=== PATIENT | male | born 1990 | race American Indian/Alaskan Native ===

== ENCOUNTER 2016-12-04 10:46 | Emergency (ER) | payer MEDICAID ==
--- NOTE | 2016-12-04 12:06 | Emergency Department Report ---
Stated Complaint: NOT SLEEPING/AGGRESSIVE BEHAVIOR Time Seen by Provider: 12/04/16 12:06 - HPI History of Present Illness: Patient brought to the hospital by a creative consultant stated that the patient has been sleeping pain and has became aggressive. She stated that the patient will need anything that she's. She is brought, and other objects. Patient said the patient has a colostomy bag from eating objects. Patient is not communicating. Blood patient to the emergency room because she said patient was discharged from another facility and they did not discharge him with any medication. She said she is here to get patient evaluated. - ROS Review of Systems: All systems are negative unless stated in HPI above - Exam Vital Signs: Vital Signs 12/04/16 12:06 Pulse Rate 53 L Respiratory 20 Rate Blood Pressure 142/85 O2 Sat by Pulse 100 Oximetry Physical Exam: General: This is a 26-year-old male well-nourished well-developed does not seem to be in any acute distress. Psych: Calm and relax. Patient is nonverbal. MSE screening note: Focused history and physical exam performed. Due to findings the following was ordered:see [facility] ED Medical Decision Making - Lab Data Result diagrams: 12/04/16 13:08 12/04/16 13:08 - Medical Decision Making Medical decision making: Patient seen by provider in triage area. Appropriate protocol activated and patient to main ED to be seen by physician. ED Disposition for MSE Condition: Stable
[2016-12-04 13:33] LABS: Anion Gap 18 mmol/L; BUN/Creatinine Ratio 12.85; Blood Urea Nitrogen 9 mg/dL (9-20); Carbon Dioxide 26 mmol/L (22-30); Chloride 99.5 mmol/L (98-107); Glucose 77 mg/dL (75-100); Potassium 4.1 mmol/L (3.6-5.0); Sodium 139 mmol/L (137-145)
[2016-12-04 13:34] LABS: Basophils % (Auto) 0.6 % (0.0-1.8); Eosinophils % (Auto) 1.2 % (0.0-4.3); Hematocrit 38.2 % (35.5-45.6); Hemoglobin 12.4 gm/dl (11.8-15.2); Mean Corpuscular HGB Conc 32 % (32-34); Mean Corpuscular Hemoglobin 27 pg (28-32); Mean Corpuscular Volume 83 fl (84-94); Platelet Count 304 K/mm3 (140-440); Red Blood Count 4.59 M/mm3 (3.65-5.03); Red Cell Distribution Width 14.3 % (13.2-15.2); White Blood Count 7.8 K/mm3 (4.5-11.0)
[2016-12-04 21:32] VITALS: BP 147/79
[2016-12-04] MEDS ORDERED: HALDOL IM ONE (22:00)
[2016-12-04] MEDS ORDERED: BENADRYL IM ONE (22:00)
--- NOTE | 2016-12-04 22:05 | Emergency Department Report ---
ED Psych HPI - General Chief Complaint: Psych Stated Complaint: NOT SLEEPING/AGGRESSIVE BEHAVIOR Time Seen by Provider: 12/04/16 12:06 Source: family, old records reviewed Mode of arrival: Ambulatory Limitations: Other - History of Present Illness Initial Comments: 26-year-old male presents to the emergency Department with caregivers for mental health evaluation. Per report, the patient was recently admitted to his current facility from [place]. Patient has a history of autism and mental retardation. Caregivers state that the patient on admission was called and cooperative. He had been receiving medication while in the hospital at [place]. Patient was not sent to their facility on any medication. Over the past several days, the patient has been sleeping less and becoming aggressive with his behavior. There are no other complaints. -: Gradual, days(s) (5) Associated Psychiatric Symptoms: none History of same: Yes Quality: constant Improves With: none Worsens With: none Context: not taking psychiatric Associated Symptoms: denies other symptoms Treatments Prior to Arrival: none - Related Data Previous Rx's Medication Instructions Recorded Last Taken Type Haloperidol [Haldol] 5 mg PO Q6H PRN #60 tab 12/04/16 Unknown Rx diphenhydrAMINE [Benadryl CAP] 25 mg PO Q6HR PRN #60 capsule 12/04/16 Unknown Rx ED Review of Systems ROS: Stated complaint: NOT SLEEPING/AGGRESSIVE BEHAVIOR Other details as noted in HPI Comment: All other systems reviewed and negative Psychiatric: as per HPI. denies: homicidal thoughts, suicidal thoughts ED Past Medical Hx - Past Medical History Previous Medical History?: Yes Additional medical history: Autism, mental retardation - Surgical History Past Surgical History?: Yes Additional Surgical History: Colostomy placement secondary to bowel obstruction - Social History Smoking Status: Unknown if ever smoked - Medications Home Medications: Home Medications Medication Instructions Recorded Confirmed Last Taken Type Haloperidol [Haldol] 5 mg PO Q6H PRN #60 tab 12/04/16 Unknown Rx diphenhydrAMINE [Benadryl CAP] 25 mg PO Q6HR PRN #60 capsule 12/04/16 Unknown Rx ED Physical Exam - General Limitations: Physical Limitation General appearance: alert, in no apparent distress - Head Head exam: Present: atraumatic, normocephalic - Eye Eye exam: Present: normal appearance, PERRL, EOMI - ENT ENT exam: Present: normal exam, normal orophraynx, mucous membranes moist - Neck Neck exam: Present: normal inspection, full ROM. Absent: tenderness - Respiratory Respiratory exam: Present: normal lung sounds bilaterally. Absent: respiratory distress - Cardiovascular Cardiovascular Exam: Present: regular rate, normal rhythm, normal heart sounds - GI/Abdominal GI/Abdominal exam: Present: soft, normal bowel sounds, other (ostomy site noted to left lower quadrant). Absent: distended, tenderness - Extremities Exam Extremities exam: Present: normal inspection, full ROM. Absent: tenderness - Back Exam Back exam: Present: normal inspection, full ROM. Absent: tenderness - Neurological Exam Neurological exam: Present: alert. Absent: motor sensory deficit - Psychiatric Psychiatric exam: Present: flat affect, other (patient is nonverbal and has difficulty following commands) - Skin Skin exam: Present: warm, dry, intact ED Course Vital Signs 12/04/16 12/04/16 12:06 21:31 Temperature 99.1 F Pulse Rate 53 L 70 Respiratory 20 20 Rate Blood Pressure 142/85 Blood Pressure 147/79 [Right] O2 Sat by Pulse 100 Oximetry - Reevaluation(s) Reevaluation #1: 12/04/16 22:07 Review of the patient's records from [place] provided by the current facility shows that the patient was receiving haloperidol and diphenhydramine. Giving IM doses of both. Patient will be observed in the emergency department. Reevaluation #2: 12/04/16 23:07 Following administration of medication, the patient has been resting quietly in the emergency department. Prescriptions for haloperidol and diphenhydramine been provided to the caregivers. Patient will be discharged with them at this time. ED Medical Decision Making - Lab Data Result diagrams: 12/04/16 13:08 12/04/16 13:08 - Differential Diagnosis autism, medication noncompliance Critical care attestation.: If time is entered above; I have spent that time in minutes in the direct care of this critically ill patient, excluding procedure time. ED Disposition Clinical Impression: Autism Disposition: DISCHARGED TO HOME OR SELFCARE Is pt being admited?: No Condition: Stable Instructions: Autism (ED) Prescriptions: diphenhydrAMINE [Benadryl CAP] 25 mg PO Q6HR PRN #60 capsule PRN Reason: Extrapyramidal Effects Haloperidol [Haldol] 5 mg PO Q6H PRN #60 tab PRN Reason: Agitation Referrals: PRIMARY CARE, [Primary Care Provider] - 3-5 Days Time of Disposition: 23:08
[2016-12-05] MEDS ORDERED: BENADRYL IM ONE ×2 (00:07→01:41)
[2016-12-05] MEDS ORDERED: HALDOL IM ONE ×2 (00:07→01:41)
== END 2016-12-05 00:56 | disposition home or self-care (01) ==
LOC: ED 10:46
DX: F84.0 Autistic disorder (principal); F79 Unspecified intellectual disabilities
CPT/HCPCS: 36415; 80048; 85025; 96372; 99283; G0480; J1200; J1630; 80320

== ENCOUNTER 2017-02-09 11:31 | Inpatient (IN) | payer MEDICAID ==
--- NOTE | 2017-02-09 12:03 | Emergency Department Report ---
Chief Complaint: Medical Clearance Stated Complaint: INFECTION Time Seen by Provider: 02/09/17 12:01 - HPI History of Present Illness: PT lives in personal usp. PT brought in for possible infection. staff noticed swelling at site of colostomy. PT has a hx of Pica. unsure if pt ingested somthing. pt still eating and having normal (for him) stool - ROS Review of Systems: - fever + abd distension - Exam Vital Signs: Vital Signs 02/09/17 11:53 Temperature 98.4 F Pulse Rate 100 H Respiratory 16 Rate Blood Pressure 129/95 O2 Sat by Pulse 99 Oximetry Physical Exam: PT is alert abd distended but soft. colostomy pouch to llq MSE screening note: Focused history and physical exam performed. Due to findings the following was ordered:xr ED Disposition for MSE Condition: Stable
--- NOTE | 2017-02-09 18:26 | Cat Scan Report ---
FINAL REPORT EXAM: CT ABDOMEN PELVIS WO CON HISTORY: abd distension, ingested fb TECHNIQUE: CT of the abdomen and pelvis without contrast PRIORS: None. FINDINGS: No acute abnormality identified in the lung bases Nonenhanced images of the liver spleen spleen are unremarkable. No peripancreatic inflammatory changes are seen the kidneys demonstrate no evidence for nephrolithiasis or hydronephrosis There is marked diffuse colonic distention large amount stool present within the colon. There is left lower quadrant colostomy Multiple radiopaque foreign bodies are present within the colon. Within the right colon there are multiple small densities present which could reflect ingested small foreign bodies. At the cecum there is a rectangular focus radiodense foreign body measuring 2.2 x 1.2 centimeters. More superiorly within right colon there is an additional metallic density foreign body measuring 1.1 x 0.4 centimeters. Within the left colon multiple foreign bodies are identified. There is some nonmetallic appearing mesh like material mixed with stool seen adjacent to the colostomy. Proximal to this there is a metallic density object 1.2 centimeters in length with some metallic appearing coils extending more proximally along with adjacent somewhat ill-defined material. There is marked colonic wall thickening at the portion of the colon just proximal to the ostomy site most consistent with colitis No free air is identified There is no significant small bowel distention. IMPRESSION: Multiple ingested foreign bodies present within the colon with marked colonic distention. Findings likely reflect obstruction or partial obstruction at the ostomy site. Marked colonic wall thickening just proximal to diverting colostomy concerning for colitis.
[2017-02-09 19:47] LABS: Basophils % (Auto) 0.4 % (0.0-1.8); Eosinophils % (Auto) 2.6 % (0.0-4.3); Hematocrit 41.3 % (35.5-45.6); Hemoglobin 13.7 gm/dl (11.8-15.2); Mean Corpuscular HGB Conc 33 % (32-34); Mean Corpuscular Hemoglobin 28 pg (28-32); Mean Corpuscular Volume 84 fl (84-94); Platelet Count 409 K/mm3 (140-440); Red Cell Distribution Width 15.6 % (13.2-15.2)
[2017-02-09 20:06] LABS: Alanine Aminotransferase 8 units/L (7-56); Albumin 3.7 g/dL (3.9-5); Albumin/Globulin Ratio 0.9 %; Alkaline Phosphatase 113 units/L (35-129); Anion Gap 18 mmol/L; BUN/Creatinine Ratio 13.33; Bilirubin,Total 0.2 mg/dL (0.1-1.2); Blood Urea Nitrogen 8 mg/dL (9-20); Calcium 8.8 mg/dL (8.4-10.2); Carbon Dioxide 27 mmol/L (22-30); Chloride 97.4 mmol/L (98-107); Glucose 119 mg/dL (75-100); Potassium 3.9 mmol/L (3.6-5.0); Sodium 138 mmol/L (137-145); Total Protein 7.6 g/dL (6.3-8.2)
--- NOTE | 2017-02-09 23:30 | Emergency Department Report ---
HPI - General Chief Complaint: Medical Clearance Time Seen by Provider: 02/09/17 23:07 - HPI HPI: Room 9 The patient is a 26-year-old male presenting with a chief complaint of colostomy dysfunction. Patient reportedly had a colostomy placed at [facility] 12/24/2016 secondary to what the sheet metal duct installer apprentice states was just informed bodies. This morning has a sheet metal duct installer apprentice was changing the colostomy bag they were concerned about a change in color of colostomy and was concerned that it may be infected. One caretakers stated that thought they saw a foreign object "piece of plastic" inside the stoma. Given the fact that the patient has a known history of ingesting foreign bodies the patient brought to the hospital for evaluation. The sheet metal duct installer apprentice states there has been no change in output of the colostomy. 3 days ago the sheet metal duct installer apprentice noted there was an episode of nausea and vomiting. There is no history of fever. Location: Abdomen Duration: [see above] Quality: [see above] Severity: [see above] Modifying factors: [see above] Context: [see above] Mode of transportation: [not driving] ED Past Medical Hx - Past Medical History Previous Medical History?: Yes Additional medical history: Autism, mental retardation, Pica - Surgical History Past Surgical History?: Yes Additional Surgical History: Colostomy placement secondary to bowel obstruction (December 2016-[facility]) - Social History Smoking Status: Never Smoker Substance Use Type: None - Medications Home Medications: Home Medications Medication Instructions Recorded Confirmed Last Taken Type Haloperidol [Haldol] 5 mg PO Q6H PRN #60 tab 12/04/16 Unknown Rx diphenhydrAMINE [Benadryl CAP] 25 mg PO Q6HR PRN #60 capsule 12/04/16 Unknown Rx ED Review of Systems ROS: Stated complaint: INFECTION Other details as noted in HPI Comment: Unobtainable due to pts medical conditions Gastrointestinal: vomiting Physical Exam - Physical Exam Vital Signs: Vital Signs 02/09/17 11:53 Temperature 98.4 F Pulse Rate 100 H Respiratory 16 Rate Blood Pressure 129/95 O2 Sat by Pulse 99 Oximetry Physical Exam: GENERAL: The patient is a large male lying in right lateral decubitus position sleeping not appearing to be in acute distress HEENT: Normocephalic. Atraumatic. Extraocular motions are intact. Patient has moist mucous membranes. NECK: Supple. No meningitic signs are noted. There is no adenopathy noted. CHEST/LUNGS: Clear to auscultation. There is no respiratory distress noted. HEART/CARDIOVASCULAR: Regular. There is tachycardia. There is no gallop rub or murmur. ABDOMEN: Abdomen is soft, nontender. Patient has normal bowel sounds. There is no abdominal distention. SKIN: There is no rash. There is no edema. There is no diaphoresis. NEURO: The patient There is no evidence of acute injury. ED Course Vital Signs 02/09/17 11:53 Temperature 98.4 F Pulse Rate 100 H Respiratory 16 Rate Blood Pressure 129/95 O2 Sat by Pulse 99 Oximetry - Consultations Consultation #1: 02/09/17 23:26 Gastroenterology paged 02/09/17 23:[address] Fam- recommends keeping the patient npo and he will evaluate in the morning ED Medical Decision Making - Lab Data Result diagrams: 02/09/17 19:25 02/09/17 19:25 Laboratory Tests 02/09/17 02/09/17 19:25 19:25 WBC 10.0 RBC 4.90 Hgb 13.7 Hct 41.3 MCV 84 MCH 28 MCHC 33 RDW 15.6 H Plt Count 409 Lymph % (Auto) 20.7 [place] % (Auto) 8.3 H Eos % (Auto) 2.6 Baso % (Auto) 0.4 Lymph # 2.1 [place] # 0.8 Eos # 0.3 Baso # 0.0 Seg Neutrophils % 68.0 Seg Neutrophils # 6.8 Sodium 138 Potassium 3.9 Chloride 97.4 L Carbon Dioxide 27 Anion Gap 18 BUN 8 L Creatinine 0.6 L Estimated GFR > 60 BUN/Creatinine Ratio 13.33 Glucose 119 H Calcium 8.8 Total Bilirubin 0.2 AST 14 ALT 8 Alkaline Phosphatase 113 Total Protein 7.6 Albumin 3.7 L Albumin/Globulin Ratio 0.9 - Radiology Data Radiology results: report reviewed (CT abdomen and pelvis), image reviewed ( abdominal x-ray, CT abdomen and pelvis) interpreted by me: Abdominal x-ray-there is an apparent screw in the right lower quadrant and a zipper in the left lower quadrant ED abdomen pelvis (read by radiologist) sees-multiple ingestive foreign bodies present within the colon with moderate colonic distention. Findings likely reflect obstruction or partial obstruction at the ostomy site. Market colonic wall thickening just proximal to the Fito colostomy concerning for colitis. - Differential Diagnosis colonic obstruction, foreign body ingestion Critical care attestation.: If time is entered above; I have spent that time in minutes in the direct care of this critically ill patient, excluding procedure time. ED Disposition Clinical Impression: Foreign body ingestion, Bowel obstruction Disposition: OP ADMITTED IP TO THIS HOSP Is pt being admited?: Yes Does the pt Need Aspirin: No Condition: Fair Referrals: DENNIS CHEATHAM MD [Primary Care Provider] - 3-5 Days Time of Disposition: 23:37 (hospitalist paged)
[2017-02-09] MEDS ORDERED: NACL 0.9% 1000 ML 1,000 ML IV ONE ×2 (23:38)
[2017-02-09] MEDS ORDERED: NACL 0.45% 1000 ML 1,000 ML IV SCH (23:45)
[2017-02-09] MEDS ORDERED: TYLENOL PO PRN (23:58)
[2017-02-09] MEDS ORDERED: ZOFRAN IV PRN (23:58)
--- NOTE | 2017-02-10 | History and Physical Report ---
History of Present Illness Date of examination: 02/09/17 History of present illness: 26-year-old man with a history of mental retardation, autism, all obstructions was brought to the emergency room because healthcare caregiver was concerned about his colostomy being infected versus the patient ingested a foreign body. Patient has a history of ingestion of foreign body. His workup here in the emergency room shows that there is a foreign body causing a partial bowel obstruction. History is per the caregiver at bedside, review of system is unobtainable PAST SURGICAL HISTORY: Colostomy SOCIAL HISTORY: No alcohol, tobacco, drugs, lives at a personal fpc FAMILY HISTORY: Unknown Medications and Allergies Allergies Allergy/AdvReac Type Severity Reaction Status Date / Time apple Allergy Rash Verified 02/12/17 17:13 chocolate flavor Allergy Rash Verified 02/12/17 17:13 Home Medications Medication Instructions Recorded Confirmed Last Taken Type Benztropine [Cogentin] 1 mg PO BID 02/10/17 02/10/17 Unknown History Haloperidol [Haldol] 2 mg PO BID PRN 02/10/17 02/10/17 Unknown History Olanzapine [ZyPREXA] 20 mg PO QDAY 02/10/17 02/10/17 Unknown History Propranolol HCl 20 mg PO QID 02/10/17 02/10/17 Unknown History diphenhydrAMINE [Benadryl CAP] 25 mg PO QDAY 02/10/17 02/10/17 Unknown History Active Meds: Active Medications Sodium Chloride (Nacl 0.9% 1000 Ml) 1,000 mls @ 999 mls/hr IV ONCE ONE Stop: 02/10/17 00:38 Sodium Chloride (Nacl 0.9% 1000 Ml) 1,000 mls @ 125 mls/hr IV ONCE ONE Stop: 02/10/17 07:37 Exam - Physical Exam Narrative exam: Gen. appearance: Patient lying in bed, no apparent distress HEENT: Normocephalic, atraumatic, pupils equally round and reactive to light, extraocular movement intact, and no sclericterus,. No JVD or thyromegaly or nodule,neck supple, no carotid bruit ,mucous membranes moist, no exudate or erythema Heart: S1, S2, regular rate and rhythm Lungs: Clear to auscultation bilaterally, breathing comfortable Abdomen: Positive bowel sounds, nontender, nondistended, no organomegaly Extremity: No edema, cyanosis, clubbing Skin: No rash, nodules, warm, dry Neuro: Difficult to assess, non-verbal - Constitutional Vitals: Temp Pulse Resp BP Pulse Ox 98.4 F 100 H 16 129/95 99 02/09/17 11:53 02/09/17 11:53 02/09/17 11:53 02/09/17 11:53 02/09/17 11:53 Results - Labs CBC & Chem 7: 02/12/17 06:37 02/12/17 06:37 Labs: Abnormal lab results 02/09/17 02/09/17 Range/Units 19:25 19:25 RDW 15.6 H (13.2-15.2) % [place] % (Auto) 8.3 H (0.0-7.3) % Chloride 97.4 L (98-107) mmol/L BUN 8 L (9-20) mg/dL Creatinine 0.6 L (0.8-1.5) mg/dL Glucose 119 H (75-100) mg/dL Albumin 3.7 L (3.9-5) g/dL Assessment and Plan Foreign-body ingestion with possible bowel obstruction Possible Colitiis Mental retardation/autism Admits medicine Start IV fluids, Levaquin, Flagyl GI is consulted, Dr. Fam is aware of the patient Start DVT prophylaxis
[2017-02-10] MEDS: LEVAQUIN 750MG/150ML 750 MG/150 ML BAG IV SCH ×2 (02:18→16:10)
[2017-02-10] MEDS: FLAGYL 500 MG/100 ML 500 MG/100 ML BAG IV SCH ×2 (04:00→16:01)
[2017-02-10 06:33] LABS: Anion Gap 17 mmol/L; Blood Urea Nitrogen 7 mg/dL (9-20); Calcium 8.4 mg/dL (8.4-10.2); Carbon Dioxide 22 mmol/L (22-30); Chloride 104.2 mmol/L (98-107); Glucose 111 mg/dL (75-100); Potassium 4.4 mmol/L (3.6-5.0); Sodium 139 mmol/L (137-145)
[2017-02-10 06:37] LABS: Basophils % (Auto) 0.4 % (0.0-1.8); Eosinophils % (Auto) 1.3 % (0.0-4.3); Hematocrit 39.2 % (35.5-45.6); Mean Corpuscular HGB Conc 33 % (32-34); Mean Corpuscular Hemoglobin 28 pg (28-32); Mean Corpuscular Volume 84 fl (84-94); Platelet Count 383 K/mm3 (140-440); Red Blood Count 4.68 M/mm3 (3.65-5.03); Red Cell Distribution Width 15.4 % (13.2-15.2); White Blood Count 10.9 K/mm3 (4.5-11.0)
--- NOTE | 2017-02-10 06:37 | Admit Criteria Form ---
Admission Criteria Documentation: INTESTINAL OBSTRUCTION Clinical Indications for Admission to Inpatient Care (Place 'X' for any and all applicable criteria): Admission is indicated for ANY ONE of the following (1)(2)(3)(4)(5): [X]I. Partial bowel obstruction [ ]II. Complete bowel obstruction Extended stay beyond goal length of stay may be needed for(1)(4)(12(: [ ]a) Identified etiology (eg, hernia, volvulus, cancer with obstruction) requiring intervention [ ]b) Gallstone ileus [ ]c) Surgical intervention [ ]d) Acute comorbid illness (eg, electrolyte imbalance, hypovolemia, renal failure) The original [employer] content created by [employer] has been revised. The portions of the content which have been revised are identified through the use of italic text or in bold, and [facility] has neither reviewed nor approved the modified material. All other unmodified content is copyright [employer]. Please see references footnoted in the original [employer] edition 2016 Admission Criteria Met: Yes
--- NOTE | 2017-02-10 09:29 | XRay Report ---
KUB. Findings: Multiple foreign bodies are projected over the abdomen these are identified within the bowel on an abdominal CT performed on the same date. Moderate stool is seen throughout colon.
[2017-02-10] MEDS ORDERED: CITRATE OF MAGNESIA PO ONE (10:32)
--- NOTE | 2017-02-10 12:22 | Event Note ---
Date: 02/10/17 Patient seen and evaluated medical records reviewed Admitted this morning with history of foreign body ingestion Medical records reviewed, caregiver at the bedside GI following,Agreed with the current management, plan of care discussed the patient's case mold forms builder as well as the nurse
--- NOTE | 2017-02-10 12:23 | Progress Note ---
Assessment and Plan Assessment and plan: --Foreign body abdomen Status post endoscopy unable to retrieve Supportive care, surgical evaluation Discussed the case with Dr. Sotomayor and requested a consult GI following --History of colostomy Ostomy care --Autism/mental retardation Supportive care --DVT prophylaxis SCDs History Interval history: Patient seen and evaluated medical records reviewed Admitted with foreign-body ingestion, status post endoscopy unable to retrieve foreign body by GI Surgical consult requested I discussed the case with Patient is noncommunicative not in acute distress Hospitalist Physical - Constitutional Vitals: Temp Pulse Resp BP Pulse Ox 98.3 F 116 H 16 126/78 100 02/10/17 07:32 02/10/17 07:32 02/10/17 07:32 02/10/17 07:32 02/10/17 07:32 General appearance: Present: no acute distress, well-nourished - EENT Eyes: Present: PERRL, EOM intact - Neck Neck: Present: supple, normal ROM - Respiratory Respiratory effort: normal Respiratory: negative: rales, rhonchi, wheezing - Cardiovascular Rhythm: regular Heart Sounds: Present: S1 & S2 - Extremities Extremities: no ischemia, pulses intact, pulses symmetrical - Abdominal General gastrointestinal: soft, normal bowel sounds - Integumentary Integumentary: Present: clear, warm - Psychiatric Psychiatric: other (noncommunicative mental retardation) - Neurologic Neurologic: other (noncommunicative mental retardation) Results - Labs CBC & Chem 7: 02/11/17 07:12 02/11/17 07:12 Labs: Laboratory Last Values WBC 10.9 K/mm3 (4.5-11.0) 02/10/17 04:00 RBC 4.68 M/mm3 (3.65-5.03) 02/10/17 04:00 Hgb 13.0 gm/dl (11.8-15.2) 02/10/17 04:00 Hct 39.2 % (35.5-45.6) 02/10/17 04:00 MCV 84 fl (84-94) 02/10/17 04:00 MCH 28 pg (28-32) 02/10/17 04:00 MCHC 33 % (32-34) 02/10/17 04:00 RDW 15.4 % (13.2-15.2) H 02/10/17 04:00 Plt Count 383 K/mm3 (140-440) 02/10/17 04:00 Lymph % (Auto) 12.6 % (13.4-35.0) L 02/10/17 04:00 [place] % (Auto) 7.1 % (0.0-7.3) 02/10/17 04:00 Eos % (Auto) 1.3 % (0.0-4.3) 02/10/17 04:00 Baso % (Auto) 0.4 % (0.0-1.8) 02/10/17 04:00 Lymph # 1.4 K/mm3 (1.2-5.4) 02/10/17 04:00 [place] # 0.8 K/mm3 (0.0-0.8) 02/10/17 04:00 Eos # 0.1 K/mm3 (0.0-0.4) 02/10/17 04:00 Baso # 0.0 K/mm3 (0.0-0.1) 02/10/17 04:00 Seg Neutrophils % 78.6 % (40.0-70.0) H 02/10/17 04:00 Seg Neutrophils # 8.6 K/mm3 (1.8-7.7) H 02/10/17 04:00 Sodium 139 mmol/L (137-145) 02/10/17 04:00 Potassium 4.4 mmol/L (3.6-5.0) 02/10/17 04:00 Chloride 104.2 mmol/L (98-107) 02/10/17 04:00 Carbon Dioxide 22 mmol/L (22-30) 02/10/17 04:00 Anion Gap 17 mmol/L 02/10/17 04:00 BUN 7 mg/dL (9-20) L 02/10/17 04:00 Creatinine 0.5 mg/dL (0.8-1.5) L 02/10/17 04:00 Estimated GFR > 60 ml/min 02/10/17 04:00 BUN/Creatinine Ratio 14.00 % 02/10/17 04:00 Glucose 111 mg/dL (75-100) H 02/10/17 04:00 Calcium 8.4 mg/dL (8.4-10.2) 02/10/17 04:00 Total Bilirubin 0.2 mg/dL (0.1-1.2) 02/09/17 19:25 AST 14 units/L (5-40) 02/09/17 19:25 ALT 8 units/L (7-56) 02/09/17 19:25 Alkaline Phosphatase 113 units/L (35-129) 02/09/17 19:25 Total Protein 7.6 g/dL (6.3-8.2) 02/09/17 19:25 Albumin 3.7 g/dL (3.9-5) L 02/09/17 19:25 Albumin/Globulin Ratio 0.9 % 02/09/17 19:25
[2017-02-10] MEDS ORDERED: NACL 0.9% 1000 ML 1,000 ML IV SCH (14:00)
[2017-02-10] MEDS: LOVENOX SUB-Q SCH (16:11)
[2017-02-10] MEDS ORDERED: WATER FOR IRRIG STERILE IR ONE (16:23)
[2017-02-10] MEDS ORDERED: NACL 0.9% 1000 ML 1,000 ML ONE ×2 (16:31→16:32)
[2017-02-10] MEDS ORDERED: WATER FOR IRRIG STERILE ONE (18:09)
[2017-02-10] MEDS ORDERED: DIPRIVAN 10 MG/ML IV ONE ×3 (18:13)
[2017-02-10] MEDS ORDERED: XYLOCAINE MPF 2% ONE (18:18)
--- NOTE | 2017-02-10 22:00 | Operative Report ---
FLEXIBLE SIGMOIDOSCOPY INDICATION: Foreign body in colon. MEDICATION: Propofol per AIRPLANE PILOT CHIEF. COMPLICATIONS: None. DESCRIPTION OF PROCEDURE: The patient brought to procedure suite. The patient had the procedure discussed with him at length. All the risks, complications, and benefits were discussed after which the patient signed for the procedure to perform. The patient was placed in left lateral decubitus position. Exam performed through the ostomy. No complications noted. FINDINGS: There was noted to be a metal object noted during rectal exam of the ostomy site. This was initially grasped with fingers, unable to be removed. Forceps were then introduced with attempted removal of the foreign body. At that time, we were still unable to remove the material. FINDINGS: Material seems stuck at the edge of the ostomy. We are also unable to re-push the material back into the colon due to which a perforation procedure was then terminated at that time. The patient tolerated procedure well. No complications during the procedure. IMPRESSION: 1. Ostomy site intact. 2. Foreign metallic body at the edge of ostomy, which we were unable to be pulled out or push more forward in. 3. Procedure terminated. RECOMMENDATIONS: 1. Continue current medications and diet. 2. Surgery consult. 3. We will follow up in a.m. JOB# [id number] CAB/NTS
[2017-02-11] MEDS: FLAGYL 500 MG/100 ML 500 MG/100 ML BAG IV SCH ×4 (01:58→17:45)
--- NOTE | 2017-02-11 04:38 | Consultation ---
REFERRING PHYSICIAN: Caryn Winter MD INDICATION: 1. Foreign body in the intestine: 2. Abdominal pain. HISTORY OF PRESENT ILLNESS: The patient is a 26-year-old mentally retarded autistic black male who has a history of colostomy reportedly secondary to foreign body ingestion in the past, now been seen by GI. The patient was noted by his care provider to have concerns around the colostomy bag, where they were concerned that he may have ingested a foreign body. The patient had no nausea or vomiting per staff. No rectal bleeding per staff. The patient subsequently came to the Emergency Room. Radiology evaluation including CT scan showed foreign bodies in the colon and the patient subsequently was admitted and GI consulted. No other specific complaints. PAST MEDICAL HISTORY: 1 Mental retardation. 2. Autism. 3. Status post colostomy. MEDICATIONS: See chart. ALLERGIES: No known drug allergies. SOCIAL HISTORY: Denies alcohol, tobacco, or drug abuse. FAMILY HISTORY: Negative for colon cancer. REVIEW OF SYSTEMS: Per chart. GENERAL: No weakness. HEENT: No visual complaints or tinnitus. PULMONARY: No shortness of breath. CARDIOVASCULAR: No chest pain. GASTROINTESTINAL: Reports mild abdominal pain. All points of 13-point review of systems otherwise negative. PHYSICAL EXAMINATION: VITAL SIGNS: Temperature of 98.9, pulse 100, respirations 18, blood pressure 140/89. GENERAL: Fairly nourished black male, does not speak, in no acute distress. HEENT: Pupils equal, round, reactive to light and accommodation. Extraocular movements intact. PULMONARY: Clear to auscultation bilaterally. CARDIOVASCULAR: rrr. Normal S1, S2. ABDOMEN: Positive bowel sounds, soft. SKIN: No obvious rashes. LABORATORY DATA: Pertinent for white count of 10.9, hemoglobin and hematocrit of 13 and 39.2, platelet count of 383. Chem-7 within normal limits. LFTs within normal limits. CT scan showed multiple ingested foreign bodies within the colon with colon distention, which may reflect a partial obstruction. ASSESSMENT: A 26-year-old male with history of colostomy reported secondary to previous foreign body ingestion, now with signs and findings of foreign bodies in the colon. PLAN: 1. Review CT. 2. N.p.o. 3. Surgical evaluation. 4. We will plan for possible colonoscopy today. JOB# [id number] CAB/NTS MTDD
[2017-02-11 07:46] LABS: Basophils % (Auto) 0.5 % (0.0-1.8); Hematocrit 39.3 % (35.5-45.6); Hemoglobin 12.9 gm/dl (11.8-15.2); Mean Corpuscular HGB Conc 33 % (32-34); Mean Corpuscular Hemoglobin 28 pg (28-32); Mean Corpuscular Volume 84 fl (84-94); Platelet Count 327 K/mm3 (140-440); Red Blood Count 4.67 M/mm3 (3.65-5.03); Red Cell Distribution Width 15.4 % (13.2-15.2); White Blood Count 8.4 K/mm3 (4.5-11.0)
[2017-02-11 07:50] LABS: Anion Gap 19 mmol/L; BUN/Creatinine Ratio 11.66; Blood Urea Nitrogen 7 mg/dL (9-20); Calcium 8.4 mg/dL (8.4-10.2); Carbon Dioxide 24 mmol/L (22-30); Chloride 100.2 mmol/L (98-107); Glucose 77 mg/dL (75-100); Potassium 3.8 mmol/L (3.6-5.0); Sodium 139 mmol/L (137-145)
--- NOTE | 2017-02-11 09:16 | Event Note ---
Date: 02/11/17 Patient is autistic male, currently restrained. S/P colonoscopy with FB visualized, unable to retrieve, concern for perforation. Surgery will need to be consulted to retrieve FB. D/W Dr. Nieto. No further GI intervention planned at this time. Patient will need to undergo surgery for removal. YSABEL Wagner-BC
[2017-02-11] MEDS: LOVENOX SUB-Q SCH (10:34)
[2017-02-11] MEDS: LEVAQUIN 750MG/150ML 750 MG/150 ML BAG IV SCH (10:34)
--- NOTE | 2017-02-11 11:00 | XRay Report ---
AP ABDOMEN History: Abdominal pain, foreign body. Findings: Correlation is made with the CT abdomen and pelvis performed 2 days ago. 3 foreign bodies are suspected in the colon. A 2.5 cm rounded radiodensity is present in the ascending colon. A second 1 cm density consistent with a screw is identified near the hepatic flexure. A third foreign body consistent with a zipper component is identified in the mid descending colon. There is no evidence for obstruction or large free air. Moderate fecal retention is noted. Impression: Foreign bodies in the colon as described. The screw is advanced into the colon by approximately 12 inches. The other 2 radiodensities appear in the same position as the exam 2 days ago.
[2017-02-11] MEDS: NACL 0.9% 1000 ML 1,000 ML IV SCH (14:21)
--- NOTE | 2017-02-11 19:52 | Progress Note ---
Assessment and Plan Assessment and plan: --Foreign body abdomen Status post endoscopy unable to retrieve Supportive care, surgical evaluation Discussed the case with Dr. Sotomayor and requested a consult GI following --History of colostomy Ostomy care --Autism/mental retardation Supportive care --DVT prophylaxis SCDs History Interval history: Patient seen and evaluated medical records reviewed Admitted with foreign-body ingestion and malfunctioning of colostomy GI has evaluated the patient status post sigmoidoscopy unable to retrieve Patient is in mild distress, noncommunicative Hospitalist Physical - Constitutional Vitals: Temp Pulse Resp BP Pulse Ox 98.2 F 88 18 124/73 100 02/11/17 07:35 02/11/17 07:35 02/11/17 07:35 02/11/17 07:35 02/11/17 09:08 General appearance: Present: mild distress, well-nourished - EENT Eyes: Present: PERRL, EOM intact - Neck Neck: Present: supple, normal ROM - Respiratory Respiratory effort: normal Respiratory: negative: rales, rhonchi, wheezing - Cardiovascular Rhythm: regular Heart Sounds: Present: S1 & S2 - Extremities Extremities: no ischemia, pulses intact, pulses symmetrical - Abdominal General gastrointestinal: soft, distended, hypoactive bowel sounds, other ( colostomy in place) - Integumentary Integumentary: Present: clear, warm - Psychiatric Psychiatric: other (noncommunicative) - Neurologic Neurologic: other (noncommunicative) Results - Labs CBC & Chem 7: 02/12/17 06:37 02/12/17 06:37 Labs: Laboratory Last Values WBC 8.4 K/mm3 (4.5-11.0) 02/11/17 07:12 RBC 4.67 M/mm3 (3.65-5.03) 02/11/17 07:12 Hgb 12.9 gm/dl (11.8-15.2) 02/11/17 07:12 Hct 39.3 % (35.5-45.6) 02/11/17 07:12 MCV 84 fl (84-94) 02/11/17 07:12 MCH 28 pg (28-32) 02/11/17 07:12 MCHC 33 % (32-34) 02/11/17 07:12 RDW 15.4 % (13.2-15.2) H 02/11/17 07:12 Plt Count 327 K/mm3 (140-440) 02/11/17 07:12 Lymph % (Auto) 18.9 % (13.4-35.0) 02/11/17 07:12 [place] % (Auto) 6.8 % (0.0-7.3) 02/11/17 07:12 Eos % (Auto) 3.0 % (0.0-4.3) 02/11/17 07:12 Baso % (Auto) 0.5 % (0.0-1.8) 02/11/17 07:12 Lymph # 1.6 K/mm3 (1.2-5.4) 02/11/17 07:12 [place] # 0.6 K/mm3 (0.0-0.8) 02/11/17 07:12 Eos # 0.3 K/mm3 (0.0-0.4) 02/11/17 07:12 Baso # 0.0 K/mm3 (0.0-0.1) 02/11/17 07:12 Seg Neutrophils % 70.8 % (40.0-70.0) H 02/11/17 07:12 Seg Neutrophils # 6.0 K/mm3 (1.8-7.7) 02/11/17 07:12 Sodium 139 mmol/L (137-145) 02/11/17 07:12 Potassium 3.8 mmol/L (3.6-5.0) 02/11/17 07:12 Chloride 100.2 mmol/L (98-107) 02/11/17 07:12 Carbon Dioxide 24 mmol/L (22-30) 02/11/17 07:12 Anion Gap 19 mmol/L 02/11/17 07:12 BUN 7 mg/dL (9-20) L 02/11/17 07:12 Creatinine 0.6 mg/dL (0.8-1.5) L 02/11/17 07:12 Estimated GFR > 60 ml/min 02/11/17 07:12 BUN/Creatinine Ratio 11.66 % 02/11/17 07:12 Glucose 77 mg/dL (75-100) 02/11/17 07:12 Calcium 8.4 mg/dL (8.4-10.2) 02/11/17 07:12 Total Bilirubin 0.2 mg/dL (0.1-1.2) 02/09/17 19:25 AST 14 units/L (5-40) 02/09/17 19:25 ALT 8 units/L (7-56) 02/09/17 19:25 Alkaline Phosphatase 113 units/L (35-129) 02/09/17 19:25 Total Protein 7.6 g/dL (6.3-8.2) 02/09/17 19:25 Albumin 3.7 g/dL (3.9-5) L 02/09/17 19:25 Albumin/Globulin Ratio 0.9 % 02/09/17 19:25
--- NOTE | 2017-02-12 02:44 | Consultation ---
HISTORY OF PRESENT ILLNESS: I was called by Dr. Fam to see this young man. He is a 26-year-old black male who apparently is mentally retarded and he has autism. Apparently, he had habit of swallowing anything that he can get on. I was called because there was evidence of at least 3 foreign bodies in his abdomen as seen on the CAT scan and on the KUB. I had a chance to talk to his caregiver, at number [phone], and her name is Zoie. To make the story short, apparently he has been there for over the last 3-4 months. Prior to that, he was in the healthcare facility in the area. He has no parents from what she told me, had no sisters and no brothers. The only person she knows about is a grandmother. The patient did not complain of anything specific. He does not talk. He moves around. He walks around and he can eat. So, I was asked to evaluate him from a surgical point of view. According to the history, he had a colostomy in the left mid lower abdomen. The patient does not smoke nor does he drink. He lives in a personal senior living. ALLERGIES: He is not allergic to any medications. He is at the facility, he is on Haldol and Benadryl. I talked to Zoie, she told me he may be taking some more medicines. I asked her to send the names of these medicines to the third floor. I gave her . PHYSICAL EXAMINATION: GENERAL: At this point showed a young man. He does not talk. He is restrained. HEAD AND NECK: Essentially nonrevealing. The neck is supple. CHEST: The chest to me was essentially clear without wheezes, rales, no rhonchi. HEART: Sounds are normal to me. ABDOMEN: Protuberant, it is soft to me. He had good bowel sounds. He had a colostomy in the left mid lower abdomen with some stool in it. EXTREMITIES: Showed no significant edema. IMPRESSION: Foreign body x 3 in the abdomen. These are small. There is a small screw in the right mid abdomen, may be about 1 cm long. There is a zipper in the left mid abdomen and there is something around it, we could not pinpoint exactly what is, me and Dr. James, with whom I was able to read the x-ray. Since the patient is doing fine, I would suggest that to continue observation and watch him over the coming 2 days. We will repeat a KUB and then we will go from there. I did indicate to the caregiver that probably, we will just watch him and we will try to stay away from surgery as much as we can. JOB# [id number] HERRERA/NADIA
[2017-02-12] MEDS: FLAGYL 500 MG/100 ML 500 MG/100 ML BAG IV SCH ×3 (05:12→17:59)
[2017-02-12 07:20] LABS: Basophils % (Auto) 0.3 % (0.0-1.8); Eosinophils % (Auto) 2.3 % (0.0-4.3); Hematocrit 41.6 % (35.5-45.6); Hemoglobin 13.7 gm/dl (11.8-15.2); Mean Corpuscular HGB Conc 33 % (32-34); Mean Corpuscular Hemoglobin 28 pg (28-32); Mean Corpuscular Volume 85 fl (84-94); Red Cell Distribution Width 14.9 % (13.2-15.2); White Blood Count 10.7 K/mm3 (4.5-11.0)
[2017-02-12 07:21] LABS: Platelet Count 335 K/mm3 (140-440)
[2017-02-12 07:44] LABS: Blood Urea Nitrogen 7 mg/dL (9-20); Calcium 8.8 mg/dL (8.4-10.2); Carbon Dioxide 14 mmol/L (22-30); Chloride 97.2 mmol/L (98-107); Glucose 65 mg/dL (75-100); Sodium 133 mmol/L (137-145)
[2017-02-12 07:50] LABS: Anion Gap 26 mmol/L
[2017-02-12 07:51] LABS: Potassium 4.3 mmol/L (3.6-5.0)
--- NOTE | 2017-02-12 10:03 | Progress Note ---
Assessment and Plan Assessment and plan: --Foreign body abdomen Status post endoscopy unable to retrieve Supportive care, surgical evaluation noted and appreciated Advised conservative management close monitoring GI following --History of colostomy Ostomy care --Autism/mental retardation Supportive care --DVT prophylaxis SCDs Plan of care discussed with the patient's caregiver as well as the nurse Consults and recommendations noted and appreciated History Interval history: patient Seen and evaluated medical records reviewed Patient is confused noncommunicative No new events reported by the nursing staff Vital signs reviewed Hospitalist Physical - Constitutional Vitals: Temp Pulse Resp BP Pulse Ox 98.1 F 97 H 15 150/78 100 02/12/17 07:05 02/12/17 07:05 02/12/17 07:05 02/12/17 07:05 02/12/17 09:22 General appearance: Present: no acute distress, well-nourished - EENT Eyes: Present: PERRL, EOM intact - Neck Neck: Present: supple - Respiratory Respiratory effort: normal Respiratory: bilateral: diminished, negative: rales, rhonchi, wheezing - Cardiovascular Rhythm: regular Heart Sounds: Present: S1 & S2 - Extremities Extremities: no ischemia, pulses intact, abnormal (contacted) - Abdominal General gastrointestinal: soft, non-tender, normal bowel sounds - Integumentary Integumentary: Present: clear, warm - Psychiatric Psychiatric: other (artistic patient is noncommunicative) - Neurologic Neurologic: moves all extremities, other (noncommunicative) Results - Labs CBC & Chem 7: 02/12/17 06:37 02/12/17 06:37 Labs: Laboratory Last Values WBC 10.7 K/mm3 (4.5-11.0) 02/12/17 06:37 RBC 4.90 M/mm3 (3.65-5.03) 02/12/17 06:37 Hgb 13.7 gm/dl (11.8-15.2) 02/12/17 06:37 Hct 41.6 % (35.5-45.6) 02/12/17 06:37 MCV 85 fl (84-94) 02/12/17 06:37 MCH 28 pg (28-32) 02/12/17 06:37 MCHC 33 % (32-34) 02/12/17 06:37 RDW 14.9 % (13.2-15.2) 02/12/17 06:37 Plt Count 335 K/mm3 (140-440) 02/12/17 06:37 Lymph % (Auto) 15.2 % (13.4-35.0) 02/12/17 06:37 [place] % (Auto) 5.8 % (0.0-7.3) 02/12/17 06:37 Eos % (Auto) 2.3 % (0.0-4.3) 02/12/17 06:37 Baso % (Auto) 0.3 % (0.0-1.8) 02/12/17 06:37 Lymph # 1.6 K/mm3 (1.2-5.4) 02/12/17 06:37 [place] # 0.6 K/mm3 (0.0-0.8) 02/12/17 06:37 Eos # 0.2 K/mm3 (0.0-0.4) 02/12/17 06:37 Baso # 0.0 K/mm3 (0.0-0.1) 02/12/17 06:37 Seg Neutrophils % 76.4 % (40.0-70.0) H 02/12/17 06:37 Seg Neutrophils # 8.2 K/mm3 (1.8-7.7) H 02/12/17 06:37 PT 11.2 Sec. (12.2-14.9) L 02/12/17 08:08 INR 0.82 (0.87-1.13) L 02/12/17 08:08 Sodium 133 mmol/L (137-145) L 02/12/17 06:37 Potassium 4.3 mmol/L (3.6-5.0) 02/12/17 06:37 Chloride 97.2 mmol/L (98-107) L 02/12/17 06:37 Carbon Dioxide 14 mmol/L (22-30) L D 02/12/17 06:37 Anion Gap 26 mmol/L 02/12/17 06:37 BUN 7 mg/dL (9-20) L 02/12/17 06:37 Creatinine 0.5 mg/dL (0.8-1.5) L 02/12/17 06:37 Estimated GFR > 60 ml/min 02/12/17 06:37 BUN/Creatinine Ratio 14.00 % 02/12/17 06:37 Glucose 65 mg/dL (75-100) L 02/12/17 06:37 Calcium 8.8 mg/dL (8.4-10.2) 02/12/17 06:37 Total Bilirubin 0.2 mg/dL (0.1-1.2) 02/09/17 19:25 AST 14 units/L (5-40) 02/09/17 19:25 ALT 8 units/L (7-56) 02/09/17 19:25 Alkaline Phosphatase 113 units/L (35-129) 02/09/17 19:25 Total Protein 7.6 g/dL (6.3-8.2) 02/09/17 19:25 Albumin 3.7 g/dL (3.9-5) L 02/09/17 19:25 Albumin/Globulin Ratio 0.9 % 02/09/17 19:25
[2017-02-12] MEDS: LOVENOX SUB-Q SCH (10:12)
--- NOTE | 2017-02-12 10:51 | XRay Report ---
KUB: Comparison is made to the prior study of February 11. 4 foreign bodies are identified as seen on prior exams. 3 of these are in the right colon and only one has progressed toward the right colonic flexure where the other 2 foreign bodies are noted. The foreign body in the descending colon has remained unchanged. No other significant findings.
[2017-02-12 11:36] LABS: INR TNR (0.87-1.13)
--- NOTE | 2017-02-12 12:48 | Progress Note ---
Subjective Narrative: kub seen with Dr Nazario some progress . no free air feces in colon will give MOM Objective Vital Signs - 12hr 02/12/17 02/12/17 07:05 09:22 Temperature 98.1 F Pulse Rate [ 97 H Left] Respiratory 15 Rate Blood Pressure 150/78 [Left Arm] O2 Sat by Pulse 100 100 Oximetry - Labs 02/12/17 06:37 02/12/17 06:37 Diabetes panel 02/12/17 Range/Units 06:37 Sodium 133 L (137-145) mmol/L Potassium 4.3 (3.6-5.0) mmol/L Chloride 97.2 L (98-107) mmol/L Carbon Dioxide 14 L D (22-30) mmol/L BUN 7 L (9-20) mg/dL Creatinine 0.5 L (0.8-1.5) mg/dL Glucose 65 L (75-100) mg/dL Calcium 8.8 (8.4-10.2) mg/dL Calcium panel 02/12/17 Range/Units 06:37 Calcium 8.8 (8.4-10.2) mg/dL Pituitary panel 02/12/17 Range/Units 06:37 Sodium 133 L (137-145) mmol/L Potassium 4.3 (3.6-5.0) mmol/L Chloride 97.2 L (98-107) mmol/L Carbon Dioxide 14 L D (22-30) mmol/L BUN 7 L (9-20) mg/dL Creatinine 0.5 L (0.8-1.5) mg/dL Glucose 65 L (75-100) mg/dL Calcium 8.8 (8.4-10.2) mg/dL Adrenal panel 02/12/17 Range/Units 06:37 Sodium 133 L (137-145) mmol/L Potassium 4.3 (3.6-5.0) mmol/L Chloride 97.2 L (98-107) mmol/L Carbon Dioxide 14 L D (22-30) mmol/L BUN 7 L (9-20) mg/dL Creatinine 0.5 L (0.8-1.5) mg/dL Glucose 65 L (75-100) mg/dL Calcium 8.8 (8.4-10.2) mg/dL
[2017-02-12] MEDS ORDERED: MILK OF MAGNESIA PO ONE ×2 (13:00→19:45)
--- NOTE | 2017-02-12 13:12 | Event Note ---
Date: 02/12/17 - no changes overnight - current management per surgery team - no plans to re-scope at this time - call if needed
[2017-02-12] MEDS: LEVAQUIN 750MG/150ML 750 MG/150 ML BAG IV SCH (15:00)
[2017-02-12] MEDS: HALDOL IM PRN (19:25)
[2017-02-13] MEDS: FLAGYL 500 MG/100 ML 500 MG/100 ML BAG IV SCH ×3 (01:23→18:07)
[2017-02-13] MEDS: NACL 0.9% 1000 ML 1,000 ML IV SCH ×2 (01:26→22:31)
[2017-02-13] MEDS: HALDOL IM PRN ×2 (07:59→13:53)
[2017-02-13] MEDS: LEVAQUIN 750MG/150ML 750 MG/150 ML BAG IV SCH (10:06)
[2017-02-13] MEDS: LOVENOX SUB-Q SCH (10:07)
--- NOTE | 2017-02-13 15:27 | XRay Report ---
SUPINE KUB: History: Abdominal pain. The previously described foreign bodies in the colon are still identified but have advanced into the distal transverse colon. There is no evidence for obstruction or free air on single view. Mild constipation. IMPRESSION: The foreign bodies have advanced in the GI tract since yesterday's exam as described above.
--- NOTE | 2017-02-13 15:40 | Progress Note ---
Assessment and Plan Assessment and plan: --Foreign body abdomen Status post endoscopy unable to retrieve Foreign-body advance to distal transverse colon Continue monitoring GI and surgery following --History of colostomy Ostomy care --Autism/mental retardation Supportive care --DVT prophylaxis SCDs Plan of care discussed with the nurse and case management History Interval history: Patient seen and evaluated medical records reviewed No new events reported by the nursing staff Repeat x-ray abdomen show foreign body moving to the distal transverse colon Patient is noncommunicative, comfortable Hospitalist Physical - Constitutional Vitals: Temp Pulse Resp BP Pulse Ox 98.3 F 83 15 134/87 100 02/13/17 07:55 02/13/17 07:55 02/13/17 07:55 02/13/17 07:55 02/13/17 10:00 General appearance: Present: no acute distress, well-nourished - EENT Eyes: Present: PERRL, EOM intact - Neck Neck: Present: supple, normal ROM - Respiratory Respiratory effort: normal Respiratory: negative: rales, rhonchi, wheezing - Cardiovascular Rhythm: regular Heart Sounds: Present: S1 & S2 - Extremities Extremities: no ischemia, pulses intact, pulses symmetrical - Abdominal General gastrointestinal: soft, non-tender, non-distended, other (colostomy in place) - Integumentary Integumentary: Present: clear, warm - Psychiatric Psychiatric: other (uncommunicative) - Neurologic Neurologic: moves all extremities, other (noncommunicative) Results - Labs CBC & Chem 7: 02/12/17 06:37 02/12/17 06:37 Labs: Laboratory Last Values WBC 10.7 K/mm3 (4.5-11.0) 02/12/17 06:37 RBC 4.90 M/mm3 (3.65-5.03) 02/12/17 06:37 Hgb 13.7 gm/dl (11.8-15.2) 02/12/17 06:37 Hct 41.6 % (35.5-45.6) 02/12/17 06:37 MCV 85 fl (84-94) 02/12/17 06:37 MCH 28 pg (28-32) 02/12/17 06:37 MCHC 33 % (32-34) 02/12/17 06:37 RDW 14.9 % (13.2-15.2) 02/12/17 06:37 Plt Count 335 K/mm3 (140-440) 02/12/17 06:37 Lymph % (Auto) 15.2 % (13.4-35.0) 02/12/17 06:37 [place] % (Auto) 5.8 % (0.0-7.3) 02/12/17 06:37 Eos % (Auto) 2.3 % (0.0-4.3) 02/12/17 06:37 Baso % (Auto) 0.3 % (0.0-1.8) 02/12/17 06:37 Lymph # 1.6 K/mm3 (1.2-5.4) 02/12/17 06:37 [place] # 0.6 K/mm3 (0.0-0.8) 02/12/17 06:37 Eos # 0.2 K/mm3 (0.0-0.4) 02/12/17 06:37 Baso # 0.0 K/mm3 (0.0-0.1) 02/12/17 06:37 Seg Neutrophils % 76.4 % (40.0-70.0) H 02/12/17 06:37 Seg Neutrophils # 8.2 K/mm3 (1.8-7.7) H 02/12/17 06:37 PT TNR 02/12/17 08:08 INR TNR 02/12/17 08:08 Sodium 133 mmol/L (137-145) L 02/12/17 06:37 Potassium 4.3 mmol/L (3.6-5.0) 02/12/17 06:37 Chloride 97.2 mmol/L (98-107) L 02/12/17 06:37 Carbon Dioxide 14 mmol/L (22-30) L D 02/12/17 06:37 Anion Gap 26 mmol/L 02/12/17 06:37 BUN 7 mg/dL (9-20) L 02/12/17 06:37 Creatinine 0.5 mg/dL (0.8-1.5) L 02/12/17 06:37 Estimated GFR > 60 ml/min 02/12/17 06:37 BUN/Creatinine Ratio 14.00 % 02/12/17 06:37 Glucose 65 mg/dL (75-100) L 02/12/17 06:37 Calcium 8.8 mg/dL (8.4-10.2) 02/12/17 06:37 Total Bilirubin 0.2 mg/dL (0.1-1.2) 02/09/17 19:25 AST 14 units/L (5-40) 02/09/17 19:25 ALT 8 units/L (7-56) 02/09/17 19:25 Alkaline Phosphatase 113 units/L (35-129) 02/09/17 19:25 Total Protein 7.6 g/dL (6.3-8.2) 02/09/17 19:25 Albumin 3.7 g/dL (3.9-5) L 02/09/17 19:25 Albumin/Globulin Ratio 0.9 % 02/09/17 19:25
--- NOTE | 2017-02-13 16:01 | Progress Note ---
Subjective Narrative: stable vs abd flat and soft , colostomy functioning will cont observation , chitra RAMSAY , Objective Vital Signs - 12hr 02/13/17 02/13/17 07:55 10:00 Temperature 98.3 F Pulse Rate [ 83 Left] Respiratory 15 Rate Blood Pressure 134/87 [Left Arm] O2 Sat by Pulse 100 100 Oximetry - Labs 02/12/17 06:37 02/12/17 06:37
[2017-02-14] MEDS: FLAGYL 500 MG/100 ML 500 MG/100 ML BAG IV SCH ×3 (02:26→17:34)
--- NOTE | 2017-02-14 07:49 | Progress Note ---
Hospitalist Physical - Constitutional Vitals: Temp Pulse Resp BP Pulse Ox 98.2 F 120 H 20 136/83 100 02/14/17 00:00 02/14/17 00:00 02/14/17 00:00 02/14/17 00:00 02/13/17 20:00 General appearance: Present: no acute distress, well-nourished Results - Labs CBC & Chem 7: 02/12/17 06:37 02/12/17 06:37 Labs: Laboratory Last Values WBC 10.7 K/mm3 (4.5-11.0) 02/12/17 06:37 RBC 4.90 M/mm3 (3.65-5.03) 02/12/17 06:37 Hgb 13.7 gm/dl (11.8-15.2) 02/12/17 06:37 Hct 41.6 % (35.5-45.6) 02/12/17 06:37 MCV 85 fl (84-94) 02/12/17 06:37 MCH 28 pg (28-32) 02/12/17 06:37 MCHC 33 % (32-34) 02/12/17 06:37 RDW 14.9 % (13.2-15.2) 02/12/17 06:37 Plt Count 335 K/mm3 (140-440) 02/12/17 06:37 Lymph % (Auto) 15.2 % (13.4-35.0) 02/12/17 06:37 [place] % (Auto) 5.8 % (0.0-7.3) 02/12/17 06:37 Eos % (Auto) 2.3 % (0.0-4.3) 02/12/17 06:37 Baso % (Auto) 0.3 % (0.0-1.8) 02/12/17 06:37 Lymph # 1.6 K/mm3 (1.2-5.4) 02/12/17 06:37 [place] # 0.6 K/mm3 (0.0-0.8) 02/12/17 06:37 Eos # 0.2 K/mm3 (0.0-0.4) 02/12/17 06:37 Baso # 0.0 K/mm3 (0.0-0.1) 02/12/17 06:37 Seg Neutrophils % 76.4 % (40.0-70.0) H 02/12/17 06:37 Seg Neutrophils # 8.2 K/mm3 (1.8-7.7) H 02/12/17 06:37 PT TNR 02/12/17 08:08 INR TNR 02/12/17 08:08 Sodium 133 mmol/L (137-145) L 02/12/17 06:37 Potassium 4.3 mmol/L (3.6-5.0) 02/12/17 06:37 Chloride 97.2 mmol/L (98-107) L 02/12/17 06:37 Carbon Dioxide 14 mmol/L (22-30) L D 02/12/17 06:37 Anion Gap 26 mmol/L 02/12/17 06:37 BUN 7 mg/dL (9-20) L 02/12/17 06:37 Creatinine 0.5 mg/dL (0.8-1.5) L 02/12/17 06:37 Estimated GFR > 60 ml/min 02/12/17 06:37 BUN/Creatinine Ratio 14.00 % 02/12/17 06:37 Glucose 65 mg/dL (75-100) L 02/12/17 06:37 Calcium 8.8 mg/dL (8.4-10.2) 02/12/17 06:37 Total Bilirubin 0.2 mg/dL (0.1-1.2) 02/09/17 19:25 AST 14 units/L (5-40) 02/09/17 19:25 ALT 8 units/L (7-56) 02/09/17 19:25 Alkaline Phosphatase 113 units/L (35-129) 02/09/17 19:25 Total Protein 7.6 g/dL (6.3-8.2) 02/09/17 19:25 Albumin 3.7 g/dL (3.9-5) L 02/09/17 19:25 Albumin/Globulin Ratio 0.9 % 02/09/17 19:25
[2017-02-14] MEDS ORDERED: MILK OF MAGNESIA PO ONE (08:02)
[2017-02-14] MEDS: LEVAQUIN 750MG/150ML 750 MG/150 ML BAG IV SCH (09:21)
[2017-02-14] MEDS: LOVENOX SUB-Q SCH (09:22)
[2017-02-14] MEDS: ATIVAN PO PRN ×2 (09:23→17:36)
--- NOTE | 2017-02-14 09:56 | XRay Report ---
KUB: Comparison is made to prior study of February 13. One of the 2 foreign bodies on the left side has progressed and are both adjacent to each other in the splenic flexure. There has been no significant progress of the 2 foreign bodies in the right abdomen. No obvious free air noted.
--- NOTE | 2017-02-14 11:44 | Progress Note ---
Assessment and Plan Assessment and plan: --Foreign body abdomen Status post endoscopy unable to retrieve Foreign-body advance to distal transverse colon Continue monitoring surgery following. Serial KUBs to monitor the progression of foreign-body --History of colostomy Ostomy care --Autism/mental retardation Supportive care --DVT prophylaxis SCDs Plan of care discussed with the nurse and case management History Interval history: Patient seen and evaluated No new events reported by the nursing staff, patient is receiving serial KUBs Foreign-body advancing slowly in the: Patient is alert and awake noncommunicative not in acute distress Hospitalist Physical - Constitutional Vitals: Temp Pulse Resp BP Pulse Ox 98.1 F 107 H 18 144/90 97 02/14/17 07:15 02/14/17 07:15 02/14/17 07:15 02/14/17 07:15 02/14/17 07:15 General appearance: Present: no acute distress, well-nourished - EENT Eyes: Present: PERRL, EOM intact - Neck Neck: Present: supple, normal ROM - Respiratory Respiratory effort: normal Respiratory: bilateral: diminished, rhonchi (occasional) - Cardiovascular Rhythm: regular Heart Sounds: Present: S1 & S2 - Extremities Extremities: no ischemia, pulses intact, pulses symmetrical Peripheral Pulses: within normal limits - Abdominal General gastrointestinal: soft, non-tender, non-distended, other (colostomy in place) - Integumentary Integumentary: Present: clear, dry - Psychiatric Psychiatric: other (noncommunicative) - Neurologic Neurologic: other (autistic, noncommunicative) Results - Labs CBC & Chem 7: 02/12/17 06:37 02/12/17 06:37 Labs: Laboratory Last Values WBC 10.7 K/mm3 (4.5-11.0) 02/12/17 06:37 RBC 4.90 M/mm3 (3.65-5.03) 02/12/17 06:37 Hgb 13.7 gm/dl (11.8-15.2) 02/12/17 06:37 Hct 41.6 % (35.5-45.6) 02/12/17 06:37 MCV 85 fl (84-94) 02/12/17 06:37 MCH 28 pg (28-32) 02/12/17 06:37 MCHC 33 % (32-34) 02/12/17 06:37 RDW 14.9 % (13.2-15.2) 02/12/17 06:37 Plt Count 335 K/mm3 (140-440) 02/12/17 06:37 Lymph % (Auto) 15.2 % (13.4-35.0) 02/12/17 06:37 [place] % (Auto) 5.8 % (0.0-7.3) 02/12/17 06:37 Eos % (Auto) 2.3 % (0.0-4.3) 02/12/17 06:37 Baso % (Auto) 0.3 % (0.0-1.8) 02/12/17 06:37 Lymph # 1.6 K/mm3 (1.2-5.4) 02/12/17 06:37 [place] # 0.6 K/mm3 (0.0-0.8) 02/12/17 06:37 Eos # 0.2 K/mm3 (0.0-0.4) 02/12/17 06:37 Baso # 0.0 K/mm3 (0.0-0.1) 02/12/17 06:37 Seg Neutrophils % 76.4 % (40.0-70.0) H 02/12/17 06:37 Seg Neutrophils # 8.2 K/mm3 (1.8-7.7) H 02/12/17 06:37 PT TNR 02/12/17 08:08 INR TNR 02/12/17 08:08 Sodium 133 mmol/L (137-145) L 02/12/17 06:37 Potassium 4.3 mmol/L (3.6-5.0) 02/12/17 06:37 Chloride 97.2 mmol/L (98-107) L 02/12/17 06:37 Carbon Dioxide 14 mmol/L (22-30) L D 02/12/17 06:37 Anion Gap 26 mmol/L 02/12/17 06:37 BUN 7 mg/dL (9-20) L 02/12/17 06:37 Creatinine 0.5 mg/dL (0.8-1.5) L 02/12/17 06:37 Estimated GFR > 60 ml/min 02/12/17 06:37 BUN/Creatinine Ratio 14.00 % 02/12/17 06:37 Glucose 65 mg/dL (75-100) L 02/12/17 06:37 Calcium 8.8 mg/dL (8.4-10.2) 02/12/17 06:37 Total Bilirubin 0.2 mg/dL (0.1-1.2) 02/09/17 19:25 AST 14 units/L (5-40) 02/09/17 19:25 ALT 8 units/L (7-56) 02/09/17 19:25 Alkaline Phosphatase 113 units/L (35-129) 02/09/17 19:25 Total Protein 7.6 g/dL (6.3-8.2) 02/09/17 19:25 Albumin 3.7 g/dL (3.9-5) L 02/09/17 19:25 Albumin/Globulin Ratio 0.9 % 02/09/17 19:25
[2017-02-14] MEDS: HALDOL IM PRN (12:25)
--- NOTE | 2017-02-14 17:13 | Progress Note ---
Subjective Narrative: stable abd soft benign stoo extruding via the colostomy , viable , FB on the left moved further , will see KUB in AM , Objective Vital Signs - 12hr 02/14/17 02/14/17 07:15 14:20 Temperature 98.1 F 98.3 F Pulse Rate [ 107 H 136 H Left] Respiratory 18 20 Rate Blood Pressure 144/90 160/90 [Left Arm] O2 Sat by Pulse 97 Oximetry - Labs 02/12/17 06:37 02/12/17 06:37
[2017-02-15] MEDS: ATIVAN PO PRN (00:31)
[2017-02-15] MEDS: FLAGYL 500 MG/100 ML 500 MG/100 ML BAG IV SCH ×3 (01:26→17:58)
[2017-02-15] MEDS: NACL 0.9% 1000 ML 1,000 ML IV SCH ×2 (01:27→23:03)
[2017-02-15] MEDS: LEVAQUIN 750MG/150ML 750 MG/150 ML BAG IV SCH (11:12)
[2017-02-15] MEDS: LOVENOX SUB-Q SCH (11:12)
--- NOTE | 2017-02-15 15:07 | Progress Note ---
Subjective Narrative: stable vital signs , kub 2 foreign bodies gone colostomy functioning well talked to RN evie barrel [facility] helper home in am with serial KUBs as an out Pt ,Pt on full ilquids . Objective Vital Signs - 12hr 02/15/17 09:07 Temperature 98.2 F Pulse Rate [ 109 H Left] Respiratory 18 Rate Blood Pressure 138/83 [Left Arm] O2 Sat by Pulse 100 Oximetry - Labs 02/12/17 06:37 02/12/17 06:37
--- NOTE | 2017-02-15 16:01 | Progress Note ---
Assessment and Plan Assessment and plan: --Foreign body abdomen Status post endoscopy unable to retrieve 2 Foreign-bodies not formed on the KUB, expelled Patient's colostomy functional, patient is tolerating oral nutrition Closely monitor possible discharge back to [facility] tomorrow if stable --History of colostomy Ostomy care --Autism/mental retardation Supportive care --DVT prophylaxis SCDs Plan of care discussed with the nurse and case management History Interval history: Patient seen and evaluated medical records reviewed No new events reported by the nursing staff Patient is alert and awake eating his lunch being fed No acute distress Hospitalist Physical - Constitutional Vitals: Temp Pulse Resp BP Pulse Ox 98.2 F 109 H 18 138/83 100 02/15/17 09:07 02/15/17 09:07 02/15/17 09:07 02/15/17 09:07 02/15/17 09:07 General appearance: Present: no acute distress, well-nourished - EENT Eyes: Present: PERRL, EOM intact - Neck Neck: Present: supple, normal ROM - Respiratory Respiratory effort: normal Respiratory: negative: rales, rhonchi, wheezing - Cardiovascular Rhythm: regular Heart Sounds: Present: S1 & S2 - Extremities Extremities: no ischemia, pulses intact - Abdominal General gastrointestinal: soft, non-tender, non-distended, normal bowel sounds, other (colostomy in place) - Integumentary Integumentary: Present: clear, warm - Psychiatric Psychiatric: other (non communicative) - Neurologic Neurologic: other (noncommunicative) Results - Labs CBC & Chem 7: 02/12/17 06:37 02/12/17 06:37 Labs: Laboratory Last Values WBC 10.7 K/mm3 (4.5-11.0) 02/12/17 06:37 RBC 4.90 M/mm3 (3.65-5.03) 02/12/17 06:37 Hgb 13.7 gm/dl (11.8-15.2) 02/12/17 06:37 Hct 41.6 % (35.5-45.6) 02/12/17 06:37 MCV 85 fl (84-94) 02/12/17 06:37 MCH 28 pg (28-32) 02/12/17 06:37 MCHC 33 % (32-34) 02/12/17 06:37 RDW 14.9 % (13.2-15.2) 02/12/17 06:37 Plt Count 335 K/mm3 (140-440) 02/12/17 06:37 Lymph % (Auto) 15.2 % (13.4-35.0) 02/12/17 06:37 [place] % (Auto) 5.8 % (0.0-7.3) 02/12/17 06:37 Eos % (Auto) 2.3 % (0.0-4.3) 02/12/17 06:37 Baso % (Auto) 0.3 % (0.0-1.8) 02/12/17 06:37 Lymph # 1.6 K/mm3 (1.2-5.4) 02/12/17 06:37 [place] # 0.6 K/mm3 (0.0-0.8) 02/12/17 06:37 Eos # 0.2 K/mm3 (0.0-0.4) 02/12/17 06:37 Baso # 0.0 K/mm3 (0.0-0.1) 02/12/17 06:37 Seg Neutrophils % 76.4 % (40.0-70.0) H 02/12/17 06:37 Seg Neutrophils # 8.2 K/mm3 (1.8-7.7) H 02/12/17 06:37 PT TNR 02/12/17 08:08 INR TNR 02/12/17 08:08 Sodium 133 mmol/L (137-145) L 02/12/17 06:37 Potassium 4.3 mmol/L (3.6-5.0) 02/12/17 06:37 Chloride 97.2 mmol/L (98-107) L 02/12/17 06:37 Carbon Dioxide 14 mmol/L (22-30) L D 02/12/17 06:37 Anion Gap 26 mmol/L 02/12/17 06:37 BUN 7 mg/dL (9-20) L 02/12/17 06:37 Creatinine 0.5 mg/dL (0.8-1.5) L 02/12/17 06:37 Estimated GFR > 60 ml/min 02/12/17 06:37 BUN/Creatinine Ratio 14.00 % 02/12/17 06:37 Glucose 65 mg/dL (75-100) L 02/12/17 06:37 Calcium 8.8 mg/dL (8.4-10.2) 02/12/17 06:37 Total Bilirubin 0.2 mg/dL (0.1-1.2) 02/09/17 19:25 AST 14 units/L (5-40) 02/09/17 19:25 ALT 8 units/L (7-56) 02/09/17 19:25 Alkaline Phosphatase 113 units/L (35-129) 02/09/17 19:25 Total Protein 7.6 g/dL (6.3-8.2) 02/09/17 19:25 Albumin 3.7 g/dL (3.9-5) L 02/09/17 19:25 Albumin/Globulin Ratio 0.9 % 02/09/17 19:25
[2017-02-16] MEDS: ATIVAN PO PRN (01:19)
[2017-02-16] MEDS: FLAGYL 500 MG/100 ML 500 MG/100 ML BAG IV SCH ×3 (02:57→17:53)
[2017-02-16] MEDS: HALDOL IM PRN (06:09)
--- NOTE | 2017-02-16 08:00 | Progress Note ---
Subjective Narrative: doing OK , tolerating PO well , abd soft genign colostomy working will ds in AM work him up as out Pt , Objective Vital Signs - 12hr 02/15/17 02/15/17 02/16/17 20:00 22:00 00:00 Temperature 98.6 F 98.8 F Pulse Rate [ 114 H 110 H Left] Respiratory 20 20 20 Rate Respiratory 20 Rate [TEREZA] Blood Pressure 140/91 136/85 [Left Arm] O2 Sat by Pulse 100 Oximetry 02/16/17 04:00 Temperature 98.5 F Pulse Rate [ 116 H Left] Respiratory 20 Rate Respiratory Rate [TEREZA] Blood Pressure 133/79 [Left Arm] O2 Sat by Pulse Oximetry - Labs 02/12/17 06:37 02/12/17 06:37
--- NOTE | 2017-02-16 09:09 | XRay Report ---
Flat and upright abdomen: Compared to 02/14/17. History: Foreign body. Findings: There is a metallic screw noted in the projection of the right upper quadrant probably in small bowel. No significant change in position compared to previous study. No bowel distention. No free intraperitoneal air. Impression: No significant interval change.
--- NOTE | 2017-02-16 09:17 | Progress Note ---
Assessment and Plan Assessment and plan: --Foreign body abdomen Status post endoscopy unable to retrieve 2 Foreign-bodies not formed on the KUB, expelled Patient's colostomy functional, patient is tolerating oral nutrition Check KUB tomorrow, if stable DC the senior living --History of colostomy Ostomy care --Autism/mental retardation Supportive care --DVT prophylaxis SCDs Discharge and transfer to [facility] facility tomorrow if stable History Interval history: Patient seen and evaluated in his room this morning medical records reviewed Patient is discomfortable tolerating food, colostomy functional Noncommunicative vital signs reviewed Hospitalist Physical - Constitutional Vitals: Temp Pulse Resp BP Pulse Ox 99.2 F 87 16 132/73 99 02/16/17 09:00 02/16/17 09:00 02/16/17 09:00 02/16/17 09:00 02/16/17 09:00 General appearance: Present: no acute distress, well-nourished - EENT Eyes: Present: PERRL, EOM intact - Neck Neck: Present: supple, normal ROM - Respiratory Respiratory effort: normal Respiratory: bilateral: diminished, negative: rales, rhonchi, wheezing - Cardiovascular Rhythm: regular Heart Sounds: Present: S1 & S2 - Extremities Extremities: no ischemia, pulses intact, pulses symmetrical - Abdominal General gastrointestinal: soft, non-tender, non-distended, normal bowel sounds, other (colostomy in place) - Integumentary Integumentary: Present: clear, warm - Psychiatric Psychiatric: other (noncommunicative) - Neurologic Neurologic: other (noncommunicative) Results - Labs CBC & Chem 7: 02/12/17 06:37 02/12/17 06:37 Labs: Laboratory Last Values WBC 10.7 K/mm3 (4.5-11.0) 02/12/17 06:37 RBC 4.90 M/mm3 (3.65-5.03) 02/12/17 06:37 Hgb 13.7 gm/dl (11.8-15.2) 02/12/17 06:37 Hct 41.6 % (35.5-45.6) 02/12/17 06:37 MCV 85 fl (84-94) 02/12/17 06:37 MCH 28 pg (28-32) 02/12/17 06:37 MCHC 33 % (32-34) 02/12/17 06:37 RDW 14.9 % (13.2-15.2) 02/12/17 06:37 Plt Count 335 K/mm3 (140-440) 02/12/17 06:37 Lymph % (Auto) 15.2 % (13.4-35.0) 02/12/17 06:37 [place] % (Auto) 5.8 % (0.0-7.3) 02/12/17 06:37 Eos % (Auto) 2.3 % (0.0-4.3) 02/12/17 06:37 Baso % (Auto) 0.3 % (0.0-1.8) 02/12/17 06:37 Lymph # 1.6 K/mm3 (1.2-5.4) 02/12/17 06:37 [place] # 0.6 K/mm3 (0.0-0.8) 02/12/17 06:37 Eos # 0.2 K/mm3 (0.0-0.4) 02/12/17 06:37 Baso # 0.0 K/mm3 (0.0-0.1) 02/12/17 06:37 Seg Neutrophils % 76.4 % (40.0-70.0) H 02/12/17 06:37 Seg Neutrophils # 8.2 K/mm3 (1.8-7.7) H 02/12/17 06:37 PT TNR 02/12/17 08:08 INR TNR 02/12/17 08:08 Sodium 133 mmol/L (137-145) L 02/12/17 06:37 Potassium 4.3 mmol/L (3.6-5.0) 02/12/17 06:37 Chloride 97.2 mmol/L (98-107) L 02/12/17 06:37 Carbon Dioxide 14 mmol/L (22-30) L D 02/12/17 06:37 Anion Gap 26 mmol/L 02/12/17 06:37 BUN 7 mg/dL (9-20) L 02/12/17 06:37 Creatinine 0.5 mg/dL (0.8-1.5) L 02/12/17 06:37 Estimated GFR > 60 ml/min 02/12/17 06:37 BUN/Creatinine Ratio 14.00 % 02/12/17 06:37 Glucose 65 mg/dL (75-100) L 02/12/17 06:37 Calcium 8.8 mg/dL (8.4-10.2) 02/12/17 06:37 Total Bilirubin 0.2 mg/dL (0.1-1.2) 02/09/17 19:25 AST 14 units/L (5-40) 02/09/17 19:25 ALT 8 units/L (7-56) 02/09/17 19:25 Alkaline Phosphatase 113 units/L (35-129) 02/09/17 19:25 Total Protein 7.6 g/dL (6.3-8.2) 02/09/17 19:25 Albumin 3.7 g/dL (3.9-5) L 02/09/17 19:25 Albumin/Globulin Ratio 0.9 % 02/09/17 19:25
[2017-02-16] MEDS: LOVENOX SUB-Q SCH (10:02)
[2017-02-16] MEDS: LEVAQUIN 750MG/150ML 750 MG/150 ML BAG IV SCH (10:03)
[2017-02-17] MEDS: NACL 0.9% 1000 ML 1,000 ML IV SCH
[2017-02-17] MEDS: ATIVAN PO PRN (01:11)
[2017-02-17] MEDS: FLAGYL 500 MG/100 ML 500 MG/100 ML BAG IV SCH ×2 (01:12→14:09)
--- NOTE | 2017-02-17 08:50 | XRay Report ---
ABDOMEN RADIOGRAPH INDICATION: Followup abdominal foreign body. COMPARISON: 02/15/2017 FINDINGS: Frontal abdominal radiograph again demonstrates a 1.4 cm screw likely along the proximal transverse colon. No focal suspicious calcifications or pneumatosis. Lung bases/diaphragm excluded from the superior radiographic margin. Left lower quadrant colostomy. Intact bones. CONCLUSION: Metallic screw-like foreign body again noted in the right upper quadrant, as described. Thank you for the opportunity to participate in this patient's care.
--- NOTE | 2017-02-17 09:34 | Discharge Summary ---
Providers - Providers Date of Admission: 02/09/17 23:58 Date of discharge: 02/17/17 Attending physician: CHRISTINA PEACOCK 02/11/17 09:09 Consult to Physician [CONS] Routine Consulting Provider: TOMMY MATTA Reason For Exam: Foreign body colon/failed attempt GI Place consult to:: classification case manager/ Notified:: OFFICE Phone number called:: [phone] Was contact made?: Yes If yes, spoke with:: LILI Time called:: 09:36 Comment:: NINO NOTIFIED Primary care physician: DENNIS CHEATHAM Hospitalization Reason for admission: foreign body ingestion/abdominal pain/malfunctioning of colostomy Condition: Fair Pertinent studies: 02/09/2017 X-ray KUB; multiple foreign body search projected over the abdomen identified within the bowel in the abdominal cavity moderate stool throughout colon CT abdomen and pelvis; multiple ingested foreign bodies present within the colon with marcated colonic distention possible obstruction or partial obstruction at the ostomy site possible colitis 02/10/2017 Sigmoidoscopy; Ostomy site intact, foreign body metallic body at the age of ostomy unable to retrieve procedure terminated, surgical consult Daily KUBs; revealed passing of metallic foreign bodies except for metallic screw that remained in the hepatic flexure of the bubble No surgical indication Advised follow-up KUBs periodically once in 4 days to monitor the movement of the foreign body point discharge Hospital course: 26-year-old mentally retarded autistic bedbound male patient group home resident was admitted through emergency room with a history of ingestion of foreign body causing colostomy problems as well as small bowel obstruction Patient was admitted to the hospital, CT abdomen and pelvis and abdominal x-ray revealed multiple metallic foreign bodies Evaluated by GI, performed sigmoidoscopy, unable to retrieve any foreign body Surgery has evaluated the patient, no surgical intervention Supportive care and daily KUBs to see the progression and movement and expulsion of these foreign bodies After 4 or 5 days of repeated KUB and supportive care Foreign body search expelled through the colostomy except for a small metallic screw, which remained in the hepatic flexure of the colon Patient's small bowel obstruction completely resolved, colostomy was functional , patient was tolerating oral fluids Surgery and GI cleared the patient for discharge, the instruction to have periodic KUBs to monitor the metallic screw in the abdomen Advised to follow with, surgery and GI as needed Today patient is comfortable tolerated oral nutrition, colostomy is functional, vital signs are stable [id number] evaluation physical examination done by me prior to discharge did not show any changes as detailed below 1 dynamically and clinically stable for discharge and transfer to assisted facility today, Final diagnosis; Multiple metallic foreign bodies in the abdomen[secondary to ingestion]. All foreign body objects were passed except for a small metallic screw Small bowel obstruction resolved Mental retardation/autism Small metallic screw in the right hepatic flexure To be monitored periodically by KUBs once in 3-4 days Disposition: DC/TX SN[facility] Time spent for discharge: 33 min Core Measure Documentation - Palliative Care Palliative Care/ Comfort Measures: Not Applicable - Core Measures Any of the following diagnoses?: none Exam - Constitutional Vitals: Temp Pulse Resp BP Pulse Ox 98.8 F 76 18 120/69 99 02/17/17 00:36 02/17/17 00:36 02/17/17 00:36 02/17/17 00:36 02/17/17 00:36 General appearance: Present: no acute distress, well-nourished - EENT Eyes: Present: PERRL, EOM intact - Neck Neck: Present: supple, normal ROM - Respiratory Respiratory effort: normal Respiratory: negative: rales, rhonchi, wheezing - Cardiovascular Rhythm: regular Heart Sounds: Present: S1 & S2 - Extremities Extremities: no ischemia, pulses intact, pulses symmetrical, abnormal ( contracted) - Abdominal General gastrointestinal: Present: soft, non-tender, non-distended, normal bowel sounds, other (colostomy in place) - Integumentary Integumentary: Present: clear, warm - Musculoskeletal Musculoskeletal: strength equal bilaterally, other (noncommunicative) - Psychiatric Psychiatric: other (noncommunicative) - Neurologic Neurologic: other (noncommunicative) Plan Activity: advance as tolerated Diet: advance as tolerated, other (soft diet,) Additional Instructions: Patient has small metallic screw in the right upper quadrant of the abdomen near the hepatic flexure of the bowel. Surgery advised periodic x-ray abdomen to assess the position of the foreign body every 3-4 days. no Surgical intervention Follow up with: DENNIS CHEATHAM MD [Primary Care Provider] - 3-5 Days TOMMY MATTA MD [Staff Physician] - 7 Days
[2017-02-17] MEDS: LEVAQUIN 750MG/150ML 750 MG/150 ML BAG IV SCH (14:11)
--- NOTE | 2017-02-17 16:39 | Progress Note ---
Subjective Narrative: no abnormality , doing fine home today abd soft , tolerating PO well . D/C today to have KUBs every 4 days , to call if any problems . Objective Vital Signs - 12hr 02/17/17 08:00 Temperature 98.4 F Pulse Rate [ 77 Left] Respiratory 18 Rate Blood Pressure 125/68 [Left Arm] O2 Sat by Pulse 95 Oximetry - Labs 02/12/17 06:37 02/12/17 06:37
[2017-02-17 17:06] VITALS: BP 127/69
== END 2017-02-17 17:45 | DRG 394 ==
LOC: ED 11:31 → 3A 23:58
PROVIDERS: ADMIT Internal Medicine; ATTEND Internal Medicine
PROC: 0DJD8ZZ Inspection of Lower Intestinal Tract, Via Natural or Artificial Opening Endoscopic (ICD-10-PCS; principal; 2017-02-10)
DX: T18.4XXA Foreign body in colon, initial encounter (principal); F84.0 Autistic disorder; F79 Unspecified intellectual disabilities; Z91.018 Allergy to other foods; Z93.3 Colostomy status
CPT/HCPCS: 36415; 74000; 74176; 80048; 80053; 85025; J1630; J1650; J1956; J2704; J7030

== ENCOUNTER 2017-02-24 11:03 | Outpatient (CLI) | payer MEDICAID ==
--- NOTE | 2017-02-24 11:54 | XRay Report ---
AP ABDOMEN History: Foreign body in abdomen. Findings: The radiopaque density consistent with a screw in the right abdomen is essentially unchanged in position since 02/17/17. The foreign body appears to be within the proximal colon. No acute process is noted. There is moderate constipation. Impression: No significant change since 02/17/17. The foreign body consistent with a screw remains in the right abdomen.
== END 2017-02-24 11:04 | disposition home or self-care (01) ==
LOC: XRAY 11:03
PROVIDERS: ATTEND Surgery
DX: T18.2XXD Foreign body in stomach, subsequent encounter (principal); X58.XXXD Exposure to other specified factors, subsequent encounter
CPT/HCPCS: 74000

== ENCOUNTER 2017-07-17 08:44 | Emergency (ER) | payer MEDICAID ==
[2017-07-17 09:09] VITALS: BP 123/79
--- NOTE | 2017-07-17 10:10 | Emergency Department Report ---
Entered by KRIS JOY, acting as scribe for HERB CONTE PA. ED Laceration HPI - HPI Chief Complaint: Wound/Laceration Stated Complaint: FELL/LEFT EYE LACERATION Time Seen by Provider: 07/17/17 09:16 Occurred When: Today Location: Head (above left eyebrow) Severity: mild Tetanus Status: Not up to Date Laceration Symptoms: Yes Pain (to affected area above left eyebrow), No Foreign Body Sensation, No Numbness, No Weakness Other History: 26 y/o male with a PMHx of autism, mental retardation, and pica presents to the ED by his nursing coordinator c/o a laceration above left eyebrow that began this morning. Patient's nursing coordinator states patient slipped and fell in the tub while bathing him. Denies LOC, vomiting, and decreased activity. Not UTD with tetanus. NKDA. ED Review of Systems ROS: Stated complaint: FELL/LEFT EYE LACERATION Other details as noted in HPI Patient's nursing coordinator is the primary historian due to patient's mental status Comment: All other systems reviewed and negative Constitutional: denies: fever Respiratory: denies: cough, shortness of breath, wheezing Endocrine: no symptoms reported Gastrointestinal: denies: vomiting Skin: other (laceration above left eyebrow). denies: rash, lesions Neurological: denies: headache, weakness, paresthesias, confusion, abnormal gait , vertigo ED Past Medical Hx - Past Medical History Previous Medical History?: Yes Additional medical history: Autism, mental retardation, Pica - Surgical History Past Surgical History?: Yes Additional Surgical History: Colostomy placement secondary to bowel obstruction (December 2016-[facility]) - Family History Family history: no significant - Social History Smoking Status: Never Smoker Substance Use Type: None - Medications Home Medications: Home Medications Medication Instructions Recorded Confirmed Last Taken Type Benztropine [Cogentin] 1 mg PO BID 02/10/17 02/10/17 Unknown History Haloperidol [Haldol] 2 mg PO BID PRN 02/10/17 02/10/17 Unknown History Olanzapine [ZyPREXA] 20 mg PO QDAY 02/10/17 02/10/17 Unknown History Propranolol HCl 20 mg PO QID 02/10/17 02/10/17 Unknown History diphenhydrAMINE [Benadryl CAP] 25 mg PO QDAY 02/10/17 02/10/17 Unknown History Laceration Physical Exam - Exam General: Vital signs noted. General: well developed, well nourished 26 year old male that is alert Wound Length (cm): 2 Laceration Location: Other (above left eyebrow) Laceration Exam: Yes Normal Distal CMS, No Foreign Body, No Exposed Tendon, Vessel, or Nerve, No Tendon Injury ED Course Vital Signs 07/17/17 09:04 Temperature 98.7 F Pulse Rate 87 Respiratory 20 Rate Blood Pressure 123/79 O2 Sat by Pulse 98 Oximetry - Procedure Description Procedures done: patient has 2 cm laceration above the left eyebrow. Betadine used to cleanse the area with normal saline. Dermabond used to bring edges together. Patient tolerated procedure well. No acute distress. ED Medical Decision Making - Medical Decision Making Patient was able to allow us to finish doing the laceration repair. Dermabond was applied successfully. Patient is resting comfortably at this time. Critical care attestation.: If time is entered above; I have spent that time in minutes in the direct care of this critically ill patient, excluding procedure time. ED Disposition Clinical Impression: Laceration of left eyebrow Disposition: DC-01 TO HOME OR SELFCARE Is pt being admited?: No Does the pt Need Aspirin: No Condition: Good Instructions: Skin Adhesive Care (ED), Laceration (ED) Referrals: PRIMARY CARE, [Primary Care Provider] - 3-5 Days DEMETRIUS SANTA MD [Staff Physician] - 3-5 Days Forms: Work/School Release Form(ED) Time of Disposition: 10:35 This documentation as recorded by the RUFINO roberts JASMINE,accurately reflects the service I personally performed and the decisions made by me, HERB CONTE PA.
== END 2017-07-17 10:58 | disposition home or self-care (01) ==
LOC: ED 08:44
DX: S01.112A Laceration without foreign body of left eyelid and periocular area, initial encounter (principal); W01.0XXA Fall on same level from slipping, tripping and stumbling without subsequent striking against object, initial encounter; Y93.9 Activity, unspecified; Y92.9 Unspecified place or not applicable; Y99.9 Unspecified external cause status